=== PATIENT | female | born 1980 | race Caucasian/White ===

== ENCOUNTER → 2016-07-18 | Outpatient (CLI) | payer BC ==
[~2016-07-18] MED LIST: MTR600X PO; NVLGIPEN SC; NVLNI SC; PREN1TAB29 PO
== END | disposition home or self-care (01) ==
LOC: C.PAPS 08:15
PROVIDERS: ATTEND Obstetrics & Gynecology
DX: Z01.419 Encounter for gynecological examination (general) (routine) without abnormal findings (principal); Z87.42 Personal history of other diseases of the female genital tract

== ENCOUNTER → 2016-07-18 | Outpatient (CLI) | payer BC ==
[2016-07-18 13:48] LABS: ESTIMATED AVERAGE GLUCOSE 137 mg/dl; HA1C FLAG Normal (Normal)
== END | disposition home or self-care (01) ==
LOC: C.LAB1850 11:41
PROVIDERS: ATTEND Physician Assistant
DX: E11.9 Type 2 diabetes mellitus without complications (principal)

== ENCOUNTER → 2017-07-03 | Outpatient (CLI) | payer BC ==
[2017-07-03 10:22] LABS: ALBUMIN 3.7 gm/dl (3.4-5.0); ALT/SGPT 53 U/L (12-78); BLOOD UREA NITROGEN 13 mg/dl (7-18); CALCIUM 9.2 mg/dl (8.5-10.1); CARBON DIOXIDE 27 mmol/L (21-32); CREATININE 0.92 mg/dl (0.60-1.20); GLUCOSE 126 mg/dl (70-99); SODIUM 137 mmol/L (136-145)
[2017-07-03 10:25] LABS: ALKALINE PHOSPHATASE 56 U/L (45-117); AST/SGOT 29 U/L (15-37); TOTAL PROTEIN 7.7 gm/dl (6.4-8.2)
[2017-07-03 10:26] LABS: HEMOGLOBIN A1C 6.1 % (4.5-5.6)
== END | disposition home or self-care (01) ==
LOC: C.LAB1850 07:19
PROVIDERS: ATTEND Physician Assistant
DX: E11.9 Type 2 diabetes mellitus without complications (principal); R79.89 Other specified abnormal findings of blood chemistry; E78.5 Hyperlipidemia, unspecified

== ENCOUNTER → 2017-07-23 | Outpatient (CLI) | payer BC | END | disposition home or self-care (01) | LOC: C.PAPS 08:32 | PROVIDERS: ATTEND Obstetrics & Gynecology | DX: Z01.419 Encounter for gynecological examination (general) (routine) without abnormal findings (principal); R87.610 Atypical squamous cells of undetermined significance on cytologic smear of cervix (ASC-US) ==

== ENCOUNTER 2018-11-19 05:42 | Inpatient (IN) ==
--- NOTE | 2018-11-17 14:26 | PAT Medication Instructions ---
Medication Instructions Date of Service November 17, 2018 Home Medications insulin lispro [Humalog U-100 Insulin] 1 sliding scale dose SUBCUT USEASDIRECTD SDA-bfub-UG-omega 3-fat com #1 1 tab PO QAM aspirin 81 mg tablet,delayed release 81 mg PO QAM insulin NPH isoph U-100 human [Humulin N NPH Insulin KwikPen] 60 unit SUBCUT QPM ASK your surgeon for instructions aspirin 81 mg tablet,delayed release 81 mg PO QAM DO NOT take the morning of surgery insulin lispro [Humalog U-100 Insulin] 1 sliding scale dose SUBCUT USEASDIRECTD BFT-beqv-HA-omega 3-fat com #1 1 tab PO QAM Take evening before surgery insulin NPH isoph U-100 human [Humulin N NPH Insulin KwikPen] 60 unit SUBCUT QPM Other Notes If you have any questions please call us at [phone] or [phone] or [phone] or [phone]
--- NOTE | 2018-11-18 12:53 | Anesthesiology Consultation ---
Date of Service November 18, 2018 Assessment & Plan (1) Encounter for pre-operative examination: ASA instructions: patient was not instructed to hold prior to c/s date by OB so patient still currently taking. Chart Review Chart Review: Acceptable Risk for Surgery (pending labs AM DOS) and Patient seen in Pre Admission Testing Teaching & Discussion Pre-Anesthesia Teaching/Discussion Notes: Instructed NPO after midnight before surgery,except medications with 15 cc of water. Medication instructions provided according to the PAT guidelines. History Surgery Operation Date: 11/19/18 07:30 Proposed Procedures p Section in LD - Nadya Garcia MD, FACOG Height/Weight Height: 5 ft 7 in Weight: 148.2 kg Allergies Allergy/AdvReac Type Severity Reaction Status Date / Time No Known Drug Allergies Allergy Verified 11/18/18 11:14 Medications Home Medications Medication Instructions Recorded Confirmed Last Taken insulin lispro [Humalog U-100 1 sliding scale dose SUBCUT 10/08/18 11/18/18 10/08/18 Insulin] USEASDIRECTD TRP-umwr-SC-omega 3-fat com #1 1 tab PO QAM 11/01/18 11/18/18 Unknown aspirin 81 mg tablet,delayed 81 mg PO QAM tab 11/01/18 11/18/18 Unknown release blood sugar diagnostic strips #10 ea 11/03/18 11/09/18 Unknown pen needle, diabetic 32 gauge x #10 ea 11/03/18 11/09/18 Unknown 5/32" insulin NPH isoph U-100 human 60 unit SUBCUT QPM 11/12/18 11/18/18 Unknown [Humulin N NPH Insulin KwikPen] Past Medical History Medical History Morbid obesity Diabetes Type 2 diabetic; on oral medications prior to ; switched to insulin for period History of miscarriage History of pre-eclampsia on ASA History of varicella Exercise / Class Metabolic Activity III < 4 Walking/Shop/Light housework Past Family History Family History Father Diabetes Grandmother (Paternal) Diabetes Mother Hypertension Heart murmur Past Surgical History Surgical History History of section, low transverse c/s: failure to progress: 10/14/13: functioning epidural was incrementally dosed; "good pain control" Past Anesthesia History No Hx of Anesthesia Complications and No Family Hx of Anesthesia Complications History of PONV No Hx of PONV and No Hx of Motion Sickness Social History Smoking Status: Never smoker Do You Dip or Chew Tobacco: No Hx Alcohol Use: No Hx Substance Use: No Review of Systems Patient denies chest pain, shortness of breath, cough, wheezing, palpitations. Physical Exam Vital Signs VITALS BP left: 137/85 (manual recheck left: 125/72) P 71 TEMP 98.3 SP02 95%RA RESP 18 PHYSICAL Full neck and c-spine range of motion. Full TMJ range of motion. TMD 4 finger breaths Mallampati Score 3 Dentition: intact Lungs: clear throughout to auscultation Cardiac: regular rate and rhythm, no murmurs noted Spine: normal Extremities: very trace non-pitting b/l LE edema Large tongue Thick neck
--- NOTE | 2018-11-18 13:09 | History & Physical Report ---
Date of Service November 18, 2018 Assessment & Plan (1) Gestational diabetes mellitus (GDM) requiring insulin: Present on Admission?: Yes (2) Chronic hypertension affecting : Present on Admission?: Yes (3) Previous delivery affecting , antepartum: Please orders for further information. plan repeat with tubal ligation on 11/19. Present on Admission?: Yes History of Present Illness Primary Care Provider: Albina Encarnacion MD Patient is a 38 yo white female who presents at 39 weeks for repeat section & bilateral tubal ligation . First was done for failrue to progress and she is requesting repeat C/S with tubal with this . ahs been complicated by GDM on insulin and a finding of possibly echogenic bowel at the 36 week growth scan.otherwise ultrasounds , & NST's have been reassuring. Allergies Allergy/AdvReac Type Severity Reaction Status Date / Time No Known Drug Allergies Allergy Verified 11/18/18 11:14 Home Medications Home Medications Medication Instructions Recorded Confirmed Type insulin lispro [Humalog U-100 1 sliding scale dose SUBCUT 10/08/18 11/18/18 History Insulin] USEASDIRECTD GVA-ectq-AM-omega 3-fat com #1 1 tab PO QAM 11/01/18 11/18/18 History aspirin 81 mg tablet,delayed 81 mg PO QAM tab 11/01/18 11/18/18 History release blood sugar diagnostic strips #10 ea 11/03/18 11/09/18 History pen needle, diabetic 32 gauge x #10 ea 11/03/18 11/09/18 History /32" insulin NPH isoph U-100 human 60 unit SUBCUT QPM 11/12/18 11/18/18 History [Humulin N NPH Insulin KwikPen] Patient History Medical History Morbid obesity Diabetes Type 2 diabetic; on oral medications prior to ; switched to insulin for period History of miscarriage History of pre-eclampsia on ASA History of varicella Surgical History History of section, low transverse c/s: failure to progress: 10/14/13: functioning epidural was incrementally dosed; "good pain control" Family History Father Diabetes Grandmother (Paternal) Diabetes Mother Hypertension Heart murmur Social History Preferred Language: Croatian Communication Ability: Effective Beliefs That Will Affect Care: None marital status: Current Living Situation: Family Feels Safe at Home: Yes Smoking Status: Never smoker Second Hand Exposure: No ; Hx Alcohol Use: No Hx Substance Use: No Review of Systems All systems reviewed & are unremarkable except as noted in HPI & below Physical Exam Constitutional: WD/WN, vitals as above Respiratory: normal respiratory effort, lungs clear to auscultation Cardiovascular: RRR, no murmur, no edema Extremities: no calf tenderness Gastrointestinal (Abdomen): normal bowel sounds, soft, nontender, no hepatosplenomegaly Percussion/Palpation: abdomen soft; abdomen nontender low transverse abdominal incision well healed Psychiatric: A+Ox3, euthymic affect Genitourinary: pelvic exam deferred.
[2018-11-19] MEDS ORDERED: CEFAZOLIN 3000MG 65 ML IV SCH (06:00)
[2018-11-19] MEDS ORDERED: CITRIC ACID/SODIUM CITRATE 15 ML UDC PO SCH (06:00)
[2018-11-19] MEDS ORDERED: LACTATED RINGER'S 1,000 ML IV SCH ×3 (06:00→09:15)
[2018-11-19 06:23] LABS: Basophils # (auto) 0.01 K/uL (0-0.2); Basophils % (auto) 0.1 %; Eosinophils # (auto) 0.11 K/uL (0-0.5); Eosinophils % (auto) 1.5 %; Hematocrit (blood only) 36.5 % (37-47); Hemoglobin 12.7 g/dL (12.0-16.0); Immature Granulocytes % (auto) 1.3 %; Lymphocytes # (auto) 1.78 K/uL (1.2-3.4); Lymphocytes % (auto) 23.8 %; Mean Corpuscular Volume 86.1 fL (80-100); Mean Platelet Volume 11.2 fL (7.4-10.4); Monocytes # (auto) 0.66 K/uL (0.11-0.59); Monocytes % (auto) 8.8 %; Neutrophils # (auto) 4.82 K/uL (1.4-6.5); Neutrophils % (auto) 64.5 %; Platelet Count 161 K/uL (130-400); RDW Coefficient of Variation 15.1 % (11.5-14.5); RDW Standard Deviation 47.1 fL (36.4-46.3); Red Blood Count 4.24 M/uL (4.2-5.4); White Blood Count 7.48 K/uL (4.8-10.8)
[2018-11-19 06:27] LABS: Mean Corpuscular Hgb Conc 34.8 g/dL (32-36)
--- NOTE | 2018-11-19 07:22 | History & Physical Bridge Note ---
Date of Service November 19, 2018 History & Physical Bridge Note I have examined the patient, reviewed the History & Physical and in the interval since the performance of the History & Physical I have noted the following changes of clinical significance: no changes noted
[2018-11-19] MEDS ORDERED: OXYTOCIN 10 UNITS/ML VIAL ONE ×3 (07:36→08:07)
[2018-11-19] MEDS ORDERED: MoRPHine SULFATE PF 1 MG/ML 10 ML AMP/VIAL ONE (07:36)
[2018-11-19] MEDS ORDERED: ePHEDrine sulfate 50 MG/ML SYR ONE (07:37)
[2018-11-19] MEDS ORDERED: MoRPHine SULFATE 2 MG/ML CARP IV PRN (08:19)
[2018-11-19] MEDS ORDERED: NALBUPHINE HCL INJ 10 MG/ML AMP IV PRN (08:19)
[2018-11-19] MEDS ORDERED: HYDROmorphone INJ 0.5 MG/0.5 ML SYR IV PRN (08:19)
[2018-11-19] MEDS ORDERED: ONDANSETRON INJ 2 MG/ML 2 ML VIAL IV PRN (08:19)
[2018-11-19] MEDS ORDERED: MEPERIDINE HCL 25 MG/ML CARP IV PRN (08:19)
[2018-11-19] MEDS ORDERED: MoRPHine SULFATE PF 1 MG/ML 10 ML AMP/VIAL INT SPINAL ONE (08:19)
[2018-11-19] MEDS ORDERED: NALOXONE HCL 0.08 MG in SYRINGE 1.8 ML IV PRN (08:19)
[2018-11-19] MEDS ORDERED: METOCLOPRAMIDE HCL 20 MG in SODIUM CHLORIDE 0.9% 50 ML IV PRN (08:19)
[2018-11-19] MEDS ORDERED: PROMETHAZINE HCL 25 MG in SODIUM CHLORIDE 0.9% 50 ML IV PRN (08:19)
[2018-11-19] MEDS ORDERED: ePHEDrine sulfate 50 MG/ML AMP IV PRN (08:19)
[2018-11-19] MEDS ORDERED: LACTATED RINGER'S 500 ML IV PRN (08:19)
[2018-11-19] MEDS ORDERED: NALOXONE HCL 0.4 MG/1 ML VIAL/CARP IV PRN (08:19)
[2018-11-19] MEDS ORDERED: DiphenhydrAMINE HCL 50 MG/ML VIAL IV PRN (08:19)
[2018-11-19] MEDS ORDERED: NALOXONE HCL 1 MG in SODIUM CHLORIDE 0.9% 1000ML 1,000 ML IV PRN (08:19)
[2018-11-19] MEDS ORDERED: PHENYLEPHRINE 100MCG/ML 5ML SYR ONE (08:24)
[2018-11-19] MEDS ORDERED: NO NARCOTICS OR SEDATIVES SCH (08:30)
[2018-11-19] MEDS ORDERED: DC INTRASPINAL MORPHINE SCH (08:30)
[2018-11-19] MEDS ORDERED: SODIUM CHLORIDE 0.9% 1000ML 1,000 ML IV SCH (08:30)
[2018-11-19] MEDS ORDERED: ONDANSETRON INJ 2 MG/ML 2 ML VIAL ONE (08:43)
--- NOTE | 2018-11-19 09:04 | Post Operative Brief Note ---
PG Immediate Post Op with CF Date of Surgery November 19, 2018 Pre & Post Diagnosis Operation Date: 11/19/18 07:30 Pre-Op Diagnosis: History of Section; unwanted fertility Post-Op Diagnosis: History of Section; unwanted fertility; delivery live female child at 0822 Procedure Operation Date: 11/19/18 07:30 Actual Procedures p Section in LD(Bilateral) - Nadya Garcia MD, FACOG bilateral modified yamila tubal ligation. Surgeon Nadya Garcia MD, FACOG Physician Internist Tyrone Cyr MD &Betsy Jeter PGY-1 Estimated Blood Loss 800 Findings Consistent with Post-Op Diagnosis Specimens Specimen Description: A. Cord blood B. Placenta-hold C. Portion Right and Left Fallopian Tube Drains Munguia Catheter
[2018-11-19] MEDS ORDERED: DIPHTHERIA/TETANUS/PERTUSSIS 0.5 ML SYR/VIAL IM ONE (09:14)
[2018-11-19] MEDS ORDERED: BENZOCAINE 20% AER SPR 82.5 GM CAN EXT PRN (09:14)
[2018-11-19] MEDS ORDERED: MAGNESIUM HYDROXIDE SUSP 30 ML UDC PO PRN (09:14)
[2018-11-19] MEDS ORDERED: SUPERCREAM 0.870% 15 GM JAR EXT PRN (09:14)
[2018-11-19] MEDS ORDERED: HYDROCORTISONE ACETATE 25 MG SUPP PR PRN (09:14)
[2018-11-19] MEDS ORDERED: SENNA 8.6 MG TAB PO PRN (09:14)
[2018-11-19] MEDS: OXYTOCIN 20 UNITS in LACTATED RINGER'S 1,000 ML IV SCH ×2 (10:15→18:22)
--- NOTE | 2018-11-19 11:02 | Anesthesiology Progress Note ---
Date of Service November 19, 2018 Anesthesia Post Procedure Vital Signs Vital Signs: Temp Pulse Resp BP Pulse Ox 11/19/18 10:55 86 97 11/19/18 10:54 83 140/67 11/19/18 10:50 82 94 11/19/18 10:45 74 95 11/19/18 10:44 78 152/73 H 11/19/18 10:40 81 95 11/19/18 10:35 79 95 11/19/18 10:34 86 149/70 H 11/19/18 10:30 69 96 11/19/18 10:25 72 97 11/19/18 10:24 80 152/74 H 11/19/18 10:20 72 96 11/19/18 10:15 64 97 11/19/18 10:14 200 H 153/100 H 11/19/18 10:10 80 97 11/19/18 10:05 88 98 11/19/18 10:04 93 H 156/80 H 11/19/18 10:00 88 98 11/19/18 09:55 79 97 11/19/18 09:54 86 150/73 H 11/19/18 09:50 71 98 11/19/18 09:45 78 149/66 H 97 11/19/18 09:41 80 87 L 11/19/18 09:40 65 95 11/19/18 09:36 81 84 L 11/19/18 09:35 79 98 11/19/18 09:34 77 142/63 H 11/19/18 09:30 79 98 11/19/18 09:29 78 94 11/19/18 09:25 76 98 11/19/18 09:24 71 135/67 94 11/19/18 09:20 67 97 11/19/18 09:15 70 136/63 98 11/19/18 09:14 86 94 11/19/18 07:14 93 H 171/109 H 11/19/18 07:03 101 H 166/82 H 11/19/18 06:53 90 151/90 H 11/19/18 06:45 93 H 156/82 H 11/19/18 06:32 81 165/88 H 11/19/18 06:26 89 165/79 H 11/19/18 06:20 93 H 152/83 H 11/19/18 06:15 86 163/82 H 11/19/18 06:08 37.0 C 42 L 18 154/74 H 11/19/18 06:00 42 L 154/74 H 11/19/18 05:55 97 H 177/81 H Transfer of Care Handoff Completed per policy Notes Mental Status: alert / awake / arousable and participated in evaluation Patient Amnestic to Procedure: Yes Nausea / Vomiting: adequately controlled Pain: adequately controlled Airway Patency, RR, SpO2: stable & adequate BP & HR: stable & adequate Hydration State: stable & adequate Neuraxial Anesthesia: was administered and sensory block is resolving Anesthetic Complications: no major complications apparent
[2018-11-19] MEDS: SIMETHICONE 80 MG CHEW PO SCH ×4 (13:15→20:25)
[2018-11-19] MEDS: KETOROLAC 30 MG/ML VIAL IV PRN ×2 (15:30→23:41)
--- NOTE | 2018-11-19 16:43 | Operative Report ---
DATE OF OPERATION: 11/19/2018 SURGEON: Dr. Nadya Flanagan. MAGNETIC DOCTOR: Dr. Tyrone Cyr and Betsy Jeter, PGY-1. PREOPERATIVE DIAGNOSES: Intrauterine at 39 weeks, prior section, requesting repeat section, unwanted fertility. POSTOPERATIVE DIAGNOSES: Intrauterine at 39 weeks, prior section, requesting repeat section, unwanted fertility plus delivery of a viable female infant, 8 pounds 2 ounces. PROCEDURE: Repeat low transverse section and bilateral tubal ligation. BLOOD LOSS: 800 mL. ANESTHESIA: Subarachnoid block. HISTORY OF PRESENT ILLNESS: The patient is a 38-year-old 2, para 1-0-0-1 white female who presents at 39 weeks for repeat section and tubal ligation because of unwanted fertility. was complicated by history of chronic hypertension and gestational diabetes requiring insulin. At her 36-week ultrasound, there was evidence of possible echogenic bowel for which the pediatricians have been notified. NSTs have been normal. Growth scans have also been normal. The patient is requesting repeat section and tubal ligation. She understands the risks of both and is willing to proceed. GROSS FINDINGS: Uterus is gravid and consistent with a term in size. Bilateral ovaries are grossly normal except for a simple 3 cm cyst on the right ovary or adjacent to the ovary. DESCRIPTION OF PROCEDURE: After the patient received adequate subarachnoid block, she was prepped and draped in usual sterile fashion. After the Munguia catheter was placed, the incision was made through her prior scar and carried to the fascia with the same scalpel and Bovie. The fascia was entered and it was extended with Schafer scissors. The edges were then grasped with Eulogio clamps and the underlying rectus muscle was bluntly sharply dissected off of the overlying fascia. The underlying peritoneum was elevated and entered sharply. The bladder was then taken down off the anterior surface of the uterus using Metzenbaum scissors and placed behind the bladder blade. The Zohreh self retractor was placed in the abdomen for better retraction and visualization. The lower uterine segment was entered with the scalpel and extended transversely. Membranes were ruptured for clear fluid. The infant was delivered from the vertex presentation with vacuum assistance. The rest of the delivered easily through the incision. There was spontaneous crying and the was moving all 4 limbs. The cord was clamped and cut and the was handed off to Dr. Hernandez who was in attendance as certified home health aide. The placenta was then manually extracted and the uterus exteriorized and covered with a clean lap sponge. The uterine cavity was then explored and found to be free of any placental tissue or membranes. The uterus was then closed in 2 layers in a running locking imbricating fashion with 0 Monocryl. Hemostasis was noted to be excellent. The right fallopian tube was identified, followed to its fimbriated end and then grasped in the mid portion with a Millsap clamp. Knuckle of tube was developed with a tie of 3-0 plain catgut followed by suture ligature of the same. Knuckle of tube was then removed and the remaining tubal ends were cauterized with the Bovie. The left fallopian tube was then identified, followed to its fimbriated end, was then grasped in the mid portion with a Millsap clamp. Knuckle of tube was developed with a tie of 3-0 plain catgut followed by suture ligature of the same. The knuckle of tube was then removed and the ends of the remaining tube were cauterized with the Bovie. Hemostasis was noted to be excellent. The tubal sites and the uterine incision, the uterus was then placed gently back into the abdominal cavity. The tubal sites were again examined and found to have excellent hemostasis as did the uterine incision. The gutters were explored and no clot or fluid was noted. The anterior cul-de-sac had some clot. This was irrigated with normal saline. The fascia was then closed in a running fashion with 0 Vicryl. Socorro's fascia was brought together with a running stitch of 3-0 catgut. Skin edges were reapproximated using blanca. Urine was clear at the end of the case. The patient tolerated the procedure well and was stable upon arrival back into the recovery room. I attest to the content of the Intraoperative Record and any orders documented therein. Any exceptions are noted below. ANDREAS
[2018-11-19] MEDS ORDERED: fentaNYL citrate 100 MCG/2 ML VIAL ONE (16:50)
[2018-11-19] MEDS ORDERED: miSOPROStol 200 MCG TAB PR ONE (17:05)
[2018-11-19] MEDS ORDERED: fentaNYL citrate 100 MCG/2 ML VIAL IV STA (17:08)
--- NOTE | 2018-11-19 17:45 | Obstetrical Progress Note ---
Date of Service November 19, 2018 Assessment & Plan (1) Previous delivery affecting , antepartum: Patient's vitals are stable I do not believe she is actively bleeding. Try to express as much clot from the uterus as possible but difficult secondary to patient habitus. We will give the patient Cytotec 800 mcg per rectum to ensure her uterine contractions. Continue to monitor. Subjective Called to evaluate patient for bleeding. Pt passed clots x2, spinal no longer providing pain relief Physical Exam Genitourinary After discussing with anesthesia, Dr. Sterling, the patient received fentanyl 15 mcg IV for pain. Bimanual examination expressed blood and clot from the vagina. Difficult to determine whether or not the uterus is completely firm secondary to patient habitus. Results & Data Vital Signs (Past 12 Hours) Vital Signs Temp Pulse Pulse Resp BP BP Pulse Ox 11/19/18 15:45 97.9 F 64 20 124/81 99 11/19/18 12:15 98.1 F 64 19 132/81 98 11/19/18 12:04 100 H 134/67 11/19/18 12:00 81 96 11/19/18 11:55 85 98 11/19/18 11:54 87 144/74 H 11/19/18 11:50 112 H 99 11/19/18 11:45 103 H 99 11/19/18 11:44 93 H 129/67 11/19/18 11:40 96 H 98 11/19/18 11:35 108 H 97 11/19/18 11:34 105 H 127/65 11/19/18 11:30 119 H 98 11/19/18 11:25 79 96 11/19/18 11:24 97.7 F 100 H 18 146/69 H 11/19/18 11:20 109 H 97 11/19/18 11:15 101 H 96 11/19/18 11:14 109 H 137/60 11/19/18 11:10 88 96 11/19/18 11:05 81 96 11/19/18 11:04 78 135/65 11/19/18 11:00 86 95 11/19/18 10:55 86 97 11/19/18 10:54 83 18 140/67 11/19/18 10:50 82 94 11/19/18 10:45 74 95 11/19/18 10:44 78 152/73 H 11/19/18 10:40 81 95 11/19/18 10:35 79 95 11/19/18 10:34 86 149/70 H 11/19/18 10:30 69 96 11/19/18 10:25 72 97 11/19/18 10:24 97.7 F 80 18 152/74 H 11/19/18 10:20 72 96 11/19/18 10:15 64 97 11/19/18 10:14 200 H 18 153/100 H 11/19/18 10:10 80 97 11/19/18 10:05 88 98 11/19/18 10:04 93 H 156/80 H 11/19/18 10:00 88 98 11/19/18 09:55 79 97 11/19/18 09:54 86 150/73 H 11/19/18 09:50 71 98 11/19/18 09:45 78 149/66 H 97 11/19/18 09:44 18 11/19/18 09:41 80 87 L 11/19/18 09:40 65 95 11/19/18 09:36 81 84 L 11/19/18 09:35 79 98 11/19/18 09:34 77 142/63 H 11/19/18 09:30 79 98 11/19/18 09:29 78 94 11/19/18 09:25 76 98 11/19/18 09:24 98.1 F 71 18 135/67 94 11/19/18 09:20 67 97 11/19/18 09:15 70 136/63 98 11/19/18 09:14 86 94 11/19/18 07:14 93 H 171/109 H 11/19/18 07:03 101 H 166/82 H 11/19/18 06:53 90 151/90 H 11/19/18 06:45 93 H 156/82 H 11/19/18 06:32 81 165/88 H 11/19/18 06:26 89 165/79 H 11/19/18 06:20 93 H 152/83 H 11/19/18 06:15 86 163/82 H 11/19/18 06:08 98.6 F 42 L 18 154/74 H 11/19/18 06:00 42 L 154/74 H 11/19/18 05:55 97 H 177/81 H Pulse Ox 11/19/18 15:45 11/19/18 12:15 98 11/19/18 12:04 11/19/18 12:00 11/19/18 11:55 11/19/18 11:54 11/19/18 11:50 11/19/18 11:45 11/19/18 11:44 11/19/18 11:40 11/19/18 11:35 11/19/18 11:34 11/19/18 11:30 11/19/18 11:25 11/19/18 11:24 11/19/18 11:20 11/19/18 11:15 11/19/18 11:14 11/19/18 11:10 11/19/18 11:05 11/19/18 11:04 11/19/18 11:00 11/19/18 10:55 11/19/18 10:54 11/19/18 10:50 11/19/18 10:45 11/19/18 10:44 11/19/18 10:40 11/19/18 10:35 11/19/18 10:34 11/19/18 10:30 11/19/18 10:25 11/19/18 10:24 11/19/18 10:20 11/19/18 10:15 11/19/18 10:14 11/19/18 10:10 11/19/18 10:05 11/19/18 10:04 11/19/18 10:00 11/19/18 09:55 11/19/18 09:54 11/19/18 09:50 11/19/18 09:45 11/19/18 09:44 11/19/18 09:41 11/19/18 09:40 11/19/18 09:36 11/19/18 09:35 11/19/18 09:34 11/19/18 09:30 11/19/18 09:29 11/19/18 09:25 11/19/18 09:24 11/19/18 09:20 11/19/18 09:15 11/19/18 09:14 11/19/18 07:14 11/19/18 07:03 11/19/18 06:53 11/19/18 06:45 11/19/18 06:32 11/19/18 06:26 11/19/18 06:20 11/19/18 06:15 11/19/18 06:08 11/19/18 06:00 11/19/18 05:55
--- NOTE | 2018-11-19 19:51 | Obstetrical Progress Note ---
Date of Service November 19, 2018 Assessment & Plan (1) Previous delivery affecting , antepartum: - pt able to stand and pass large clot - I feel I was unable to express the clot completely with my prior exam - pt's vitals are stable - will check stat H/H - pt previously received cytotec 800mcg rectally - will continue to monitor Subjective Called to evaluate another passage of clot Results & Data Vital Signs (Past 12 Hours) Vital Signs Temp Pulse Pulse Resp BP BP Pulse Ox 11/19/18 18:00 19 97 11/19/18 17:00 18 97 11/19/18 16:00 21 98 11/19/18 15:45 97.9 F 64 20 124/81 99 11/19/18 15:00 18 99 11/19/18 14:00 17 99 11/19/18 13:00 19 98 11/19/18 12:15 98.1 F 64 19 132/81 98 11/19/18 12:04 100 H 134/67 11/19/18 12:00 81 96 11/19/18 11:55 85 98 11/19/18 11:54 87 144/74 H 11/19/18 11:50 112 H 99 11/19/18 11:45 103 H 99 11/19/18 11:44 93 H 129/67 11/19/18 11:40 96 H 98 11/19/18 11:35 108 H 97 11/19/18 11:34 105 H 127/65 11/19/18 11:30 119 H 98 11/19/18 11:25 79 96 11/19/18 11:24 97.7 F 100 H 18 146/69 H 11/19/18 11:20 109 H 97 11/19/18 11:15 101 H 96 11/19/18 11:14 109 H 137/60 11/19/18 11:10 88 96 11/19/18 11:05 81 96 11/19/18 11:04 78 135/65 11/19/18 11:00 86 95 11/19/18 10:55 86 97 11/19/18 10:54 83 18 140/67 11/19/18 10:50 82 94 11/19/18 10:45 74 95 11/19/18 10:44 78 152/73 H 11/19/18 10:40 81 95 11/19/18 10:35 79 95 11/19/18 10:34 86 149/70 H 11/19/18 10:30 69 96 11/19/18 10:25 72 97 11/19/18 10:24 97.7 F 80 18 152/74 H 11/19/18 10:20 72 96 11/19/18 10:15 64 97 11/19/18 10:14 200 H 18 153/100 H 11/19/18 10:10 80 97 11/19/18 10:05 88 98 11/19/18 10:04 93 H 156/80 H 11/19/18 10:00 88 98 11/19/18 09:55 79 97 11/19/18 09:54 86 150/73 H 11/19/18 09:50 71 98 11/19/18 09:45 78 149/66 H 97 11/19/18 09:44 18 11/19/18 09:41 80 87 L 11/19/18 09:40 65 95 11/19/18 09:36 81 84 L 11/19/18 09:35 79 98 11/19/18 09:34 77 142/63 H 11/19/18 09:30 79 98 11/19/18 09:29 78 94 11/19/18 09:25 76 98 11/19/18 09:24 98.1 F 71 18 135/67 94 11/19/18 09:20 67 97 11/19/18 09:15 70 136/63 98 11/19/18 09:14 86 94 Pulse Ox 11/19/18 18:00 11/19/18 17:00 11/19/18 16:00 11/19/18 15:45 11/19/18 15:00 11/19/18 14:00 11/19/18 13:00 11/19/18 12:15 98 11/19/18 12:04 11/19/18 12:00 11/19/18 11:55 11/19/18 11:54 11/19/18 11:50 11/19/18 11:45 11/19/18 11:44 11/19/18 11:40 11/19/18 11:35 11/19/18 11:34 11/19/18 11:30 11/19/18 11:25 11/19/18 11:24 11/19/18 11:20 11/19/18 11:15 11/19/18 11:14 11/19/18 11:10 11/19/18 11:05 11/19/18 11:04 11/19/18 11:00 11/19/18 10:55 11/19/18 10:54 11/19/18 10:50 11/19/18 10:45 11/19/18 10:44 11/19/18 10:40 11/19/18 10:35 11/19/18 10:34 11/19/18 10:30 11/19/18 10:25 11/19/18 10:24 11/19/18 10:20 11/19/18 10:15 11/19/18 10:14 11/19/18 10:10 11/19/18 10:05 11/19/18 10:04 11/19/18 10:00 11/19/18 09:55 11/19/18 09:54 11/19/18 09:50 11/19/18 09:45 11/19/18 09:44 11/19/18 09:41 11/19/18 09:40 11/19/18 09:36 11/19/18 09:35 11/19/18 09:34 11/19/18 09:30 11/19/18 09:29 11/19/18 09:25 11/19/18 09:24 11/19/18 09:20 11/19/18 09:15 11/19/18 09:14
[2018-11-19 20:04] LABS: Hematocrit (blood only) 35.7 % (37-47)
[2018-11-19] MEDS: DOCUSATE SODIUM 100 MG CAP PO SCH (20:25)
[2018-11-19] MEDS: METHYLERGONOVINE MALEATE 0.2 MG/ML AMP IM SCH (20:56)
[2018-11-20] MEDS ORDERED: SODIUM CHLORIDE 0.9% 500 ML IV SCH (00:15)
[2018-11-20] MEDS ORDERED: LACTATED RINGER'S 500 ML IV ONE (00:21)
[2018-11-20] MEDS ORDERED: KETOROLAC 30 MG/ML VIAL IV PRN (02:19)
[2018-11-20] MEDS ORDERED: DiphenhydrAMINE HCL 50 MG/ML VIAL IV PRN (02:19)
[2018-11-20] MEDS ORDERED: ZOLPIDEM TARTRATE 5 MG TAB PO PRN (02:19)
[2018-11-20] MEDS ORDERED: ONDANSETRON INJ 2 MG/ML 2 ML VIAL IV PRN (02:19)
[2018-11-20] MEDS ORDERED: MEPERIDINE HCL 50 MG/ML CARP IV PRN (02:19)
[2018-11-20] MEDS ORDERED: PROMETHAZINE HCL 25 MG in SODIUM CHLORIDE 0.9% 50 ML IV PRN (02:19)
[2018-11-20] MEDS: METHYLERGONOVINE MALEATE 0.2 MG/ML AMP IM SCH ×3 (02:24→17:21)
[2018-11-20] MEDS: IBUPROFEN 600 MG TAB PO PRN ×5 (03:55→22:46)
[2018-11-20] MEDS: OXYCODONE/ACETAMINOPHEN 5mg/325mg TAB PO PRN ×5 (03:56→22:47)
--- NOTE | 2018-11-20 06:08 | Obstetrical Progress Note ---
Date of Service <Betsy Jeter MD - Last Filed: 11/20/18 07:06> November 20, 2018 Assessment & Plan <Betsy Jeter MD - Last Filed: 11/20/18 07:06> (1) Status post : Christina is a 38 yo on POD 1 of elective c/s - GBS +, Rh + , Rubella immune -Vitals reviewed and WNL -lochia slightly improved; patient on Methergine IM -Hemoglobin reviewed and is stable -patient is clinically improving encourage ambulation, progress diet as tolerated, provide analgesia as needed, monitor lochia - After discharge will have [address] Flanagan. Subjective <Betsy Jeter MD - Last Filed: 11/20/18 07:06> Ambulation: ambulating normally Voiding: no voiding problems Passing Gas:: No Diet Tolerance:: clear liquids Lochia:: Moderate Feeding Type:: bottle feeding (similac formula) Current Pain Level(1-10): 3 patient examined at bedside; lochia is slightly decreasing Constitutional: no fever, no chills and no sweats Respiratory: no cough and no dyspnea Cardiovascular: no chest pain and no palpitations Breast: no breast pain Gastrointestinal: no nausea and no vomiting Genitourinary (female): no dysuria and no urinary frequency Neurologic: no headache(s) Physical Exam <Betsy Jeter MD - Last Filed: 11/20/18 07:06> Constitutional WD/WN, vitals as above no acute distress Respiratory normal respiratory effort, lungs clear to auscultation does not use accessory muscles Auscultation: no crackles, no rhonchi, no wheezes and no pleural rub Cardiovascular Rate/Rhythm: regular rate and regular rhythm Heart Sounds: normal S1 and normal S2; no gallop, no murmur and no cardiac rub Extremities: no calf tenderness and no pedal edema SCDs in place bilaterally Gastrointestinal (Abdomen) Inspection/Auscultation: normal bowel sounds; abdomen not distended Percussion/Palpation: abdomen soft Genitourinary Uterus: fundus firm, palpable 1 cm below the umbilicus surgical incision: dressing in place, dry, some dried blood visible; expected post-op tenderness Results & Data <Betsy Jeter MD - Last Filed: 11/20/18 07:06> Vital Signs (Past 12 Hours) Vital Signs Temp Pulse Resp BP Pulse Ox 11/20/18 03:30 36.7 C 88 20 128/83 95 11/20/18 02:00 18 98 11/20/18 01:00 18 99 11/20/18 00:00 18 99 11/19/18 23:34 37.0 C 90 18 126/81 94 11/19/18 23:00 18 97 11/19/18 22:00 18 95 11/19/18 21:00 18 98 11/19/18 20:00 18 97 11/19/18 19:48 37.4 C 84 18 126/68 95 11/19/18 19:00 18 98 <Tyrone Cyr Jr, MD, FACOG - Last Filed: 11/20/18 07:43> Co-Signing Physician Notes Resident Physician Supervision Note: I was present with Dr. Jeter during the history and exam. I discussed the case with the resident and agree with the findings and plan as documented in the note. Any exceptions or clarifications are listed here: Discussed bleeding, clinically stable Documented By: Tyrone Cyr Jr, MD, FACOG
[2018-11-20 06:59] LABS: Hematocrit (blood only) 31.8 % (37-47); Hemoglobin 10.7 g/dL (12.0-16.0)
[2018-11-20] MEDS ORDERED: MEASLES, MUMPS & RUBELLA VIRUS VIAL SQ ONE (07:07)
[2018-11-20] MEDS: FERROUS SULFATE 325 MG TAB PO SCH (08:50)
[2018-11-20] MEDS: DOCUSATE SODIUM 100 MG CAP PO SCH ×2 (08:50→20:40)
[2018-11-20] MEDS: PRENATAL VITAMIN 1 TAB PO SCH (08:50)
[2018-11-20] MEDS: SIMETHICONE 80 MG CHEW PO SCH ×4 (08:50→20:40)
--- NOTE | 2018-11-20 16:36 | Anesthesiology Progress Note ---
Date of Service November 20, 2018 Anesthesia Post Procedure Vital Signs Vital Signs: Temp Pulse Resp BP Pulse Ox 11/20/18 07:50 36.8 C 94 H 20 123/91 11/20/18 03:30 36.7 C 88 20 128/83 95 11/20/18 02:00 18 98 11/20/18 01:00 18 99 11/20/18 00:00 18 99 11/19/18 23:34 37.0 C 90 18 126/81 94 11/19/18 23:00 18 97 11/19/18 22:00 18 95 11/19/18 21:00 18 98 11/19/18 20:00 18 97 11/19/18 19:48 37.4 C 84 18 126/68 95 11/19/18 19:00 18 98 11/19/18 18:00 19 97 11/19/18 17:00 18 97 Pain Intensity Medial Abdomen: Pain Intensity: 2 Transfer of Care Handoff Completed per policy Notes Mental Status: alert / awake / arousable Patient Amnestic to Procedure: Yes Nausea / Vomiting: adequately controlled Pain: adequately controlled Airway Patency, RR, SpO2: stable & adequate BP & HR: stable & adequate Hydration State: stable & adequate Anesthetic Complications: no major complications apparent and Pt Satisfied with anesthetic care
[2018-11-20] MEDS ORDERED: METHYLERGONOVINE MALEATE 0.2 MG/ML AMP ONE (17:20)
[2018-11-20] MEDS ORDERED: BISACODYL 5 MG TABEC PO SCH (20:00)
[2018-11-21 06:55] LABS: Basophils # (auto) 0.02 K/uL (0-0.2); Basophils % (auto) 0.3 %; Eosinophils # (auto) 0.18 K/uL (0-0.5); Eosinophils % (auto) 2.7 %; Hematocrit (blood only) 33.7 % (37-47); Hemoglobin 11.2 g/dL (12.0-16.0); Immature Granulocytes # (auto) 0.07 K/uL (0.00-0.02); Immature Granulocytes % (auto) 1.1 %; Lymphocytes # (auto) 1.75 K/uL (1.2-3.4); Lymphocytes % (auto) 26.6 %; Mean Corpuscular Hgb Conc 33.2 g/dL (32-36); Mean Corpuscular Volume 87.5 fL (80-100); Mean Platelet Volume 11.2 fL (7.4-10.4); Monocytes # (auto) 0.45 K/uL (0.11-0.59); Monocytes % (auto) 6.8 %; Neutrophils % (auto) 62.5 %; Platelet Count 169 K/uL (130-400); RDW Coefficient of Variation 15.5 % (11.5-14.5); RDW Standard Deviation 49.1 fL (36.4-46.3); Red Blood Count 3.85 M/uL (4.2-5.4); White Blood Count 6.57 K/uL (4.8-10.8)
[2018-11-21] MEDS: DOCUSATE SODIUM 100 MG CAP PO SCH (08:33)
[2018-11-21] MEDS: PRENATAL VITAMIN 1 TAB PO SCH (08:33)
[2018-11-21] MEDS: FERROUS SULFATE 325 MG TAB PO SCH (08:34)
[2018-11-21] MEDS: SIMETHICONE 80 MG CHEW PO SCH (08:34)
[2018-11-21] MEDS: OXYCODONE/ACETAMINOPHEN 5mg/325mg TAB PO PRN (08:34)
[2018-11-21] MEDS: IBUPROFEN 600 MG TAB PO PRN (08:34)
--- NOTE | 2018-11-21 08:45 | Obstetrical Progress Note ---
Date of Service November 21, 2018 Assessment & Plan (1) Status post : continues to have serous drainage from right side of incision but it has decreased. no evidence of cellulitis patient wishes to go home will continue to monitor drainage follow up in the office for incision check on 11/24. Day #:: 2 Subjective Ambulation: ambulating normally Voiding: no voiding problems Passing Gas:: Yes Diet Tolerance:: regular diet Lochia:: Small Feeding Type:: breast feeding Review of Systems All systems reviewed & are unremarkable except as noted in HPI & below Physical Exam Constitutional WD/WN, vitals as above Cardiovascular Extremities: no calf tenderness Gastrointestinal (Abdomen) normal bowel sounds, soft, nontender, no hepatosplenomegaly Inspection/Auscultation: + abdominal surgical incision (intact, no redness, still draining serous fluid from right side of incision) Psychiatric A+Ox3, euthymic affect Results & Data Vital Signs (Past 12 Hours) Vital Signs Temp Pulse Resp BP 11/20/18 23:00 97.7 F 106 H 18 133/79
[2018-11-21] MEDS ORDERED: BISACODYL 10 MG SUPP PR PRN (09:14)
--- NOTE | 2018-11-21 15:25 | Discharge Summary ---
PRINCIPAL DIAGNOSES: Intrauterine at term, prior section, unwanted fertility. PROCEDURE: Repeat low transverse section and bilateral tubal ligation. HISTORY OF PRESENT ILLNESS AND HOSPITAL COURSE: The patient is a 38-year-old 2, para 1-0-0-1 white female who presented at 39 weeks for repeat section and tubal ligation. Her had been complicated by chronic hypertension and gestational diabetes requiring insulin, although she was a type 2 diabetic prior to getting . She underwent the section and tubal ligation without any complications. She was eating regular diet and ambulating and voiding without difficulties on her 1st postop day. However, her incision was leaking a serosanguineous fluid from the right corner. She is morbidly obese and it had been noted that the adipose layer where the incision was made was quite edematous.. The leakage of fluid was controlled with abdominal pads. The patient denied any nausea, vomiting, abdominal pain. Her pain was well controlled with oral pain medication. She remained afebrile throughout her hospital stay. Hemoglobin on admission was 12.0, hematocrit of 35.7. First postop day, hemoglobin 10.7, hematocrit 31.8. Second postop day, hemoglobin 11.2 and hematocrit of 33.7 with a white count of 6570. She was sent home with supplies for the leaking serous drainage from her incision- namely ABD pads and tape. She was given scripts for Percocet 1 or 2 tablets p.o. q. 4 hours p.r.n. pain, ibuprofen 650 mg p.o. q. 4 hours p.r.n. pain. She is to be seen in the office on 11/24 for incision check and possible staple removal. She is to call for temperature of 101 degrees or higher, heavy vaginal bleeding, increased redness of her incision or change in the drainage from her incision to a purulent material. She is to call if she has calf tenderness, burning with urination or any other concerns. ANDREAS
== END 2018-11-21 11:40 | disposition home or self-care (01) | DRG 783 ==
LOC: 4S1 05:42 → EDSTATUS 07:30 → 4S2 13:41